=== PATIENT | male | born 1990 | race African-American/Black ===

== ENCOUNTER 2019-12-25 04:05 | Emergency (ER) | payer BC, MEDICAID ==
[~2019-12-25] VITALS: Ht 177.8 cm; Wt 79.4 kg
[2019-12-25 04:11] VITALS: BP 129/86
[2019-12-25] MEDS ORDERED: DEXAMETHASONE 10 MG/ML VIAL IM ONE (04:35)
[2019-12-25 05:18] VITALS: BP 129/86
== END 2019-12-25 05:18 | disposition home or self-care (01) ==
LOC: MED 04:05
DX: T78.40XA Allergy, unspecified, initial encounter (principal); X58.XXXA Exposure to other specified factors, initial encounter; Z91.010 Allergy to peanuts
CPT/HCPCS: 96372; 99283; J1100